=== PATIENT | female | born 1985 | race Caucasian/White ===

== ENCOUNTER 2016-05-13 11:00 | Inpatient (IN) | payer OTHER ==
[2016-05-13] MEDS ORDERED: ELECTROLYTE-148 SOLN 1,000 ML IV SCH (11:30)
[2016-05-13] MEDS: ELECTROLYTE-148 SOLN 1,000 ML IV SCH (11:30)
[2016-05-13] MEDS ORDERED: CITRIC ACID/SODIUM CITRATE 30 ML UNIT-DOSE CUP PO ONE (11:36)
[2016-05-13 12:32] LABS: URIC ACID 6.1 mg/dL (2.6-7.2)
[2016-05-13 12:59] VITALS: BMI 31.4
[2016-05-13] MEDS ORDERED: TUBERCULIN PPD 5 TU/0.1ML SYRINGE (IN PATIENT USE ONLY) ID ONE (13:00)
[2016-05-13 16:02] LABS: URINE APPEARANCE CLEAR; URINE BILIRUBIN NEGATIVE (NEGATIVE); URINE COLOR YELLOW; URINE GLUCOSE (UA) NEGATIVE (NEGATIVE); URINE KETONE NEGATIVE (NEGATIVE); URINE LEUK ESTERASE NEGATIVE (NEGATIVE); URINE NITRITE NEGATIVE (NEGATIVE); URINE PROTEIN NEGATIVE (NEGATIVE); URINE UROBILINOGEN NEGATIVE E.U./dl (0.2-1.0)
--- NOTE | 2016-05-13 16:06 | HP ---
[id number] Chief Complaint: 31 yo P0 @ 40.4 wks with induced hypertension and LGA fetus, protracted latent labor with no cervical change History of Present Illness: PNC uncomplicated, except for several URI History Source: Patient Limitations to Obtaining History: No Limitations - Past Medical History ...: 1 ...Para: 0 ...Term: 0 ...: 0 ...Spon : 0 ...Induced : 0 ...Multiple Gestation: 0 ...EDC by Sono: 05/11/16 - Past Surgical History Past Surgical History: Yes: None Hx Myomectomy: No Hx Transabdominal Cerclage: No - Smoking History Smoking history: Former smoker Have you smoked in the past 12 months: No - Alcohol/Substance Use Hx Alcohol Use: No History of Substance Use: reports: None - Social History Usual Living Arrangement: Yes: With Spouse ADL: Independent Occupation: branch rental manager History of Recent Travel: No Home Medications - Allergies Allergies/Adverse Reactions: Allergies Allergy/AdvReac Type Severity Reaction Status Date / Time Penicillins Allergy Verified 05/13/16 11:38 - Home Medications Home Medications: Ambulatory Orders Acetaminophen [Tylenol] 650 mg PO PRN PRN 04/23/16 Azithromycin [Zithromax 250mg Tablets -] 250 mg PO UTDICT #6 tab 04/23/16 Guaifenesin [Mucinex] 1 tab PO PRN 04/23/16 Caplet 1 tab PO DAILY 04/23/16 Ibuprofen [Motrin -] 600 mg PO QID #28 tablet 05/15/16 Oxycodone HCl/Acetaminophen [Percocet 5-325 mg Tablet] 1 - 2 tab PO Q6H #20 tab MDD 4 05/16/16 Review of Systems - Review of Systems Constitutional: reports: No Symptoms Eyes: reports: No Symptoms HENT: reports: No Symptoms Neck: reports: No Symptoms Cardiovascular: reports: No Symptoms Respiratory: reports: No Symptoms Gastrointestinal: reports: No Symptoms Genitourinary: reports: No Symptoms Breasts: reports: No Symptoms Reported Musculoskeletal: reports: No Symptoms Integumentary: reports: No Symptoms Neurological: reports: No Symptoms Endocrine: reports: No Symptoms Hematology/Lymphatic: reports: No Symptoms Psychiatric: reports: No Symptoms Pain Intensity: 5 Physical Exam - Maternity Vital Signs: Vital Signs Temperature 97.8 F 02/24/17 14:00 Pulse Rate 88 05/13/16 15:09 Respiratory Rate 18 05/13/16 15:09 Blood Pressure 123/64 05/13/16 15:09 O2 Sat by Pulse Oximetry (%) Constitutional: Yes: Well Nourished HENT: Yes: WNL Neck: Yes: WNL Cardiovascular: Yes: WNL Lungs: Clear to auscultation Breast(s): Yes: WNL - Abdominal Exam/OB Fundal Height: 40 Number of Fetuses: Single Presentation: Vertex Contractions: Yes Regularity: Regular Intensity: Mild/Mod Monitor Mode: External Heart Rate (range): 140's Accelerations: Uniform Decelerations: None - Vaginal Exam/OB Vaginal Bleediing: No Dilatation (cm): 1 Effacement (%): 70% Amniotic Membrane Status: Intact Presentation: Vertex/Position Station: -3 (not engaged) - Physical Exam Edema: No Deep Tendon Reflex Grade: Normal +2 ...Motor Strength: WNL Psychiatric: Yes: WNL Problem List - Problems (1) Hypertension affecting in third trimester Assessment/Plan: Transient HTN, UA - 6.1 will observe BP after delivery Code(s): O16.3 - UNSPECIFIED MATERNAL HYPERTENSION, THIRD TRIMESTER (2) Large for gestational age fetus affecting mother, antepartum, third trimester, single gestation Assessment/Plan: Likely CPD Vertex not engaged after 12hr of prodromal labor Will proceed with c/section Code(s): O36.63X0 - MATERNAL CARE FOR EXCESS GROWTH, THIRD TRIMESTER, UNSP Assessment/Plan 31yo P 0 @ 40.4 wks Admit to L&D PEC labs Anesthesia aware of plan to proceed with c/section Placenta posterior T&C x 2 Units
[2016-05-13 16:08] LABS: URINE BLOOD 2+ (NEGATIVE)
[2016-05-13 16:10] LABS: URINE MUCUS FEW; URINE RBC 4 /hpf (0-3); URINE WBC 7 /hpf (3-5)
[2016-05-13] MEDS ORDERED: morphine SULFATE/Preservative Free 0.5 MG/ML (1cc Syringe) IT ONE (17:03)
[2016-05-13] MEDS ORDERED: ONDANSETRON 4 MG/2 ML VIAL IVPB PRN (17:40)
[2016-05-13] MEDS ORDERED: IBUPROFEN 600 MG TABLET (FP) PO PRN (18:43)
[2016-05-13] MEDS ORDERED: ACETAMINOPHEN 325 MG TABLET (FP) PO PRN (18:43)
[2016-05-13] MEDS ORDERED: BENZOCAINE 20% 57 GM BOTTLE TP PRN (18:43)
[2016-05-13] MEDS ORDERED: BENZOCAINE 28 GM HEMORRHOIDAL OINTMENT TP PRN (18:43)
[2016-05-13] MEDS ORDERED: WITCH HAZEL 50% (TUCKS) 40 PAD/JAR PAD TP PRN (18:43)
[2016-05-13] MEDS ORDERED: METHYLERGONOVINE MALEATE 0.2 MG/1 ML AMP IM PRN (18:43)
[2016-05-13] MEDS ORDERED: BISACODYL 10 MG SUPP.RECT RC PRN (18:43)
--- NOTE | 2016-05-13 18:50 | PN ---
Delivery - Delivery Section: Primary, Low Flap Transverse Type of Anesthesia: Spinal Episiotomy/Laceration: None EBL (cc): 500 (Urine 175cc) Delivery, Single - Stages of Labor Date 1st Stage Initiatied: 05/13/16 Time 1st Stage Initiated: 07:00 Date of Delivery: 05/13/16 Time of Delivery: 17:29 Date Placenta Delivered: 05/13/16 Time Placenta Delivered: 17:30 Placenta: Yes: Expressed - Condition of Infant Tire Builder Operator/Senior Linux Unix Engineer Present: Yes Name: Dayana Obrien Infant Gender: Male Weight: 8 lb 4 oz Position: Right, OA Total Hours ROM (Hrs/Mins): 2 min - 1 Minute Total Score: 9 5 Minutes Total Score: 9 - Feeding Plan Initial Plan: Elected not to breastfeed exclusively throughout hospitalization Benefits of Exclusively reinforced: Yes Remarks - Remarks Remarks: Fluids 2000l Uterus closed in 2 layers with 0-Bycin Peretoneum closed with 0-Bycin Muscle reaproximated Fascia 0-Vycril SC reapproximated Skin 4-0
[2016-05-13] MEDS ORDERED: ACETAMINOPHEN 1000 MG/100 ML VIAL (NON FORMULARY) IVPB ONE (19:27)
[2016-05-13] MEDS: D5W-LR W/ 20 UNITS OXYTOCIN 1,000 ML IV SCH (19:43)
[2016-05-13] MEDS ORDERED: IBUPROFEN 800 MG/8 ML IJ IVPB ONE (19:46)
[2016-05-14] MEDS: D5W-LR W/ 20 UNITS OXYTOCIN 1,000 ML IV SCH (04:07)
[2016-05-14 07:25] LABS: BASOPHIL 0.3 % (0-2.0); EOSINOPHIL 0.6 % (0-4.5); MCH 31.1 pg (25.7-33.7); MCHC 33.9 g/dl (32.0-36.0); MEAN CELL VOLUME 91.7 fl (80-96); MEAN PLT VOLUME 8.9 fl (7.5-11.1); PLATELET COUNT 130 K/MM3 (134-434); RDW 13.5 % (11.6-15.6); WHITE BLOOD COUNT 10.6 K/mm3 (4.0-10.0)
--- NOTE | 2016-05-14 07:49 | PN ---
Post Progress Note - Subjective Subjective: 31 yo P1 now feels incisional pain in bed, attempting to breast feed Post Day: 1 Type of Delivery: Primary C/S Vital Signs: Vital Signs Temperature 98.6 F 05/14/16 06:00 Pulse Rate 76 05/14/16 06:00 Respiratory Rate 20 05/14/16 06:00 Blood Pressure 113/68 05/14/16 06:00 O2 Sat by Pulse Oximetry (%) 100 05/13/16 19:30 Breast Exam: Yes: Soft Uterus: Yes: Fundus Firm Incision: Yes: Dressing dry and intact Abdomen/GI: Yes: Abdomen soft Lochia: Yes: Rubra Lochia, amount: Small Extremities: Yes: Calves non-tender - Labs Labs: CBC WBC 10.6 K/mm3 (4.0-10.0) H D 05/14/16 06:00 RBC 3.53 M/mm3 (3.60-5.2) L 05/14/16 06:00 Hgb 11.0 GM/dL (10.7-15.3) D 05/14/16 06:00 Hct 32.4 % (32.4-45.2) 05/14/16 06:00 MCV 91.7 fl (80-96) 05/14/16 06:00 MCHC 33.9 g/dl (32.0-36.0) 05/14/16 06:00 RDW 13.5 % (11.6-15.6) 05/14/16 06:00 Plt Count 130 K/MM3 (134-434) L D 05/14/16 06:00 MPV 8.9 fl (7.5-11.1) 05/14/16 06:00 Neutrophils % 77.0 % (42.8-82.8) 05/14/16 06:00 Lymphocytes % 15.4 % (8-40) D 05/14/16 06:00 Monocytes % 6.7 % (3.8-10.2) 05/14/16 06:00 Eosinophils % 0.6 % (0-4.5) 05/14/16 06:00 Basophils % 0.3 % (0-2.0) 05/14/16 06:00 Retic Count 1.49 % (0.5-1.5) 05/13/16 11:45 Haptoglobin 93 mg/dL (34-200) 05/13/16 11:45 Assessment/Plan 31yo P1 s/p 1' c/s for LGA, induced HTN VSS, Afibrile repeat CBC Rh+ Baby for circ francesca PP care
--- NOTE | 2016-05-14 09:31 | PN ---
Progress Note (short form) - Note Progress Note: ANESTHESIA POST-OP CHECK 31F s/p under spinal anesthesia, POD #1. No acute complaints, tolerating PO, not yet OOB, vance in place. Denies N/V, headache. Pain 7/10 and tolerable. Vital Signs Temperature 98.6 F 05/14/16 06:00 Pulse Rate 76 05/14/16 06:00 Respiratory Rate 18 05/14/16 08:00 Blood Pressure 113/68 05/14/16 06:00 O2 Sat by Pulse Oximetry (%) 100 05/13/16 19:30 Active Medications Acetaminophen (Tylenol -) 650 mg PO Q4H PRN PRN Reason: FEVER OR PAIN Acetaminophen (Tylenol -) 650 mg PO Q3H PRN PRN Reason: PAIN Benzocaine (Americaine Ointment -) 1 applic TP PRN PRN PRN Reason: PAIN Benzocaine (Americaine 20% [place] -) 1 spray TP PRN PRN PRN Reason: PAIN Bisacodyl (Dulcolax Suppository -) 10 mg RC PRN PRN PRN Reason: CONSTIPATION Diphenhydramine HCl (Benadryl Injection -) 25 mg IVPUSH Q4H PRN PRN Reason: Pruritis Ferrous Sulfate (Feosol -) 325 mg PO BIDWM [facility] Parenteral Electrolytes (Plasma-Lyte 148 -) 1,000 mls @ 125 mls/hr IV ASDIR [facility] Last Admin: 05/13/16 11:30 Dose: 125 mls/hr Ibuprofen (Motrin -) 600 mg PO Q4H PRN PRN Reason: PAIN Ibuprofen (Motrin -) 600 mg PO Q4H PRN PRN Reason: PAIN Methylergonovine Maleate (Methergine Injection -) 0.2 mg IM Q4H PRN PRN Reason: EXCESSIVE BLEEDING (L&D) Multivit/Folic Acid/Iron ( Vitamins (Sjr) -) 1 tab PO DAILY [facility] Senna/Docusate Sodium (Pericolace -) 2 tablet PO HS PRN PRN Reason: CONSTIPATION Witch Arianna/Glycerin (Tucks Pads -) 1 pad TP PRN PRN PRN Reason: PAIN Gen: awake, alert Ext: No motor or sensory deficits of B/L lower ext. No apparent anesthesia complications. Pain well controlled. Continue management as per primary team.
[2016-05-14] MEDS: PRENATAL VITAMINS W/ FOLIC ACID TABLET (FP) PO SCH (10:46)
[2016-05-14] MEDS: FERROUS SO4 325 MG TABLET (FP) PO SCH ×2 (10:46→17:07)
[2016-05-14] MEDS: ELECTROLYTE-148 SOLN 1,000 ML IV SCH (13:00)
[2016-05-14] MEDS: IBUPROFEN 600 MG TABLET (FP) PO PRN ×3 (13:37→22:15)
[2016-05-14] MEDS: ACETAMINOPHEN 325 MG TABLET (FP) PO PRN ×3 (13:39→22:15)
--- NOTE | 2016-05-14 18:22 | OP ---
DATE OF OPERATION: 05/13/2016 SURGEON: Laura Gomes MD ASSET AVAILABILITY LEADER: Pasha Perez MD ANESTHESIOLOGIST: Blaine Acosta MD PREOPERATIVE DIAGNOSIS: A 31-year-old 1, para 0 at 40+ weeks with large for gestational age fetus and transient hypertension, protracted, prodromal labor. POSTOPERATIVE DIAGNOSIS: A 31-year-old 1, para 0 at 40+ weeks with large for gestational age fetus and transient hypertension, protracted, prodromal labor. PROCEDURE: Primary low segment transverse section. ANESTHESIA: Spinal. ESTIMATED BLOOD LOSS: 500 mL. URINE OUTPUT: 175 mL. FLUID REPLACED: 2,000 mL. DESCRIPTION OF PROCEDURE: After ensuring informed consent, the patient was brought to the operating room and placed in a supine position with left lateral tilt. Abdomen was prepped and draped in a sterile fashion. Pfannenstiel skin incision was made with a scalpel and carried down to the level of the fascia with the cautery. The fascia was incised with cautery and dissected bilaterally with good visualization of underlying muscle. It was subsequently dissected off the rectus abdominis muscle superiorly and inferiorly. The rectus abdominis was split in the midline. The peritoneum was identified and entered bluntly, dissected with good visualization of underlying organs with cautery. Bladder was retracted with [place] blade. Both gutters were packed with lap sponges. The vesicouterine peritoneum was identified and tented with pickups and incised with Metzenbaum scissors bilaterally. Bladder flap was created and retracted with the [place]. Uterine incision was made with a scalpel. Lightly tinged meconium fluid was noted. Uterine incision was extended bilaterally with bandage scissors. 's head was found to be floating and not engaged in the pelvis. It was delivered atraumatically. One cord around the neck was reduced. The 's shoulders and the rest of the body were delivered atraumatically. Cord was clamped and cut. Infant was handed to the pediatricians. Apgars were found to be 9 and 9. Infant male with weight of 8 pounds 4 ounces. Taken care of by pediatricians. Placenta was expressed. The uterus was cleared of clots and debris and repaired with 0 Biosyn in 2 layers. Peritoneum was closed with 0 Biosyn after all sponges and instruments were removed and excellent hemostasis was noted at the level of the uterus. Muscle was reapproximated in the midline. Fascia was closed with 0 Vicryl. Subcutaneous tissue reapproximated with 2-0 chromic and skin closed with 4-0 Biosyn. Excellent hemostasis was achieved. COUNTS: All lap sponges and instruments were counted and count was correct x2. The patient was brought to the recovery room in stable condition. Jc EWING/[id number] MTDD
[2016-05-14] MEDS: SENNOSIDES/DOCUSATE COMBO (SENNA PLUS) TABLET (UD) PO PRN (22:14)
[2016-05-15] MEDS: IBUPROFEN 600 MG TABLET (FP) PO PRN ×4 (03:42→20:44)
[2016-05-15] MEDS: ACETAMINOPHEN 325 MG TABLET (FP) PO PRN ×4 (03:44→20:44)
[2016-05-15] MEDS: PRENATAL VITAMINS W/ FOLIC ACID TABLET (FP) PO SCH (09:14)
[2016-05-15] MEDS: FERROUS SO4 325 MG TABLET (FP) PO SCH ×2 (09:14→17:19)
[2016-05-15 10:17] LABS: BASOPHIL 0.2 % (0-2.0); EOSINOPHIL 1.2 % (0-4.5); MCH 31.2 pg (25.7-33.7); MCHC 33.8 g/dl (32.0-36.0); MEAN CELL VOLUME 92.4 fl (80-96); MEAN PLT VOLUME 8.2 fl (7.5-11.1); NEUTROPHILS 75.8 % (42.8-82.8); PLATELET COUNT 144 K/MM3 (134-434); RDW 13.8 % (11.6-15.6); WHITE BLOOD COUNT 9.8 K/mm3 (4.0-10.0)
--- NOTE | 2016-05-15 12:05 | PN ---
Progress Note (short form) - Note Progress Note: pod 2 doing well, ambulating , passing gas CBC, BMP 05/15/16 09:30 Last Vital Signs Temp Pulse Resp BP Pulse Ox 98.1 F 85 18 141/78 100 05/15/16 09:12 05/15/16 09:12 05/15/16 09:12 05/15/16 09:12 05/13/16 19:30 abdomen soft, no distension, ,BS present incision dry, clean no calf tenderness plan cbc in am, ambulate
[2016-05-15] MEDS: SIMETHICONE 80 MG TAB.CHEW (FP) PO PRN ×2 (14:13→20:43)
[2016-05-15] MEDS: SENNOSIDES/DOCUSATE COMBO (SENNA PLUS) TABLET (UD) PO PRN (20:43)
[2016-05-16] MEDS: IBUPROFEN 600 MG TABLET (FP) PO PRN (01:09)
[2016-05-16] MEDS: SIMETHICONE 80 MG TAB.CHEW (FP) PO PRN ×2 (01:09→08:17)
[2016-05-16] MEDS: ACETAMINOPHEN 325 MG TABLET (FP) PO PRN ×3 (01:10→08:18)
[2016-05-16] MEDS: oxyCODONE HCL 5 MG TABLET PO PRN ×2 (04:24→08:18)
[2016-05-16] MEDS: FERROUS SO4 325 MG TABLET (FP) PO SCH (08:17)
[2016-05-16 08:34] VITALS: BP 123/88; PULSE 99; TEMP 98.4
--- NOTE | 2016-05-16 09:25 | PN ---
Post Progress Note - Subjective Subjective: 31yo P1 now s/p 1' LST c/s +BM, voiding, ambulating, tolerating reg diet Post Day: 3 Type of Delivery: Primary C/S Vital Signs: Vital Signs Temperature 98.4 F 05/16/16 08:32 Pulse Rate 99 H 05/16/16 08:32 Respiratory Rate 20 05/16/16 08:32 Blood Pressure 123/88 05/16/16 08:32 O2 Sat by Pulse Oximetry (%) 100 05/13/16 19:30 Breast Exam: Yes: Engorged Uterus: Yes: Fundus Firm, Non-tender Abdomen/GI: Yes: Abdomen soft, Passing flatus, Tolerating PO Lochia: Yes: Rubra Lochia, amount: Small Extremities: Yes: Calves non-tender Activity: Ambulating - Labs Labs: CBC WBC 9.8 K/mm3 (4.0-10.0) 05/15/16 09:30 RBC 3.14 M/mm3 (3.60-5.2) L 05/15/16 09:30 Hgb 9.8 GM/dL (10.7-15.3) L D 05/15/16 09:30 Hct 29.0 % (32.4-45.2) L 05/15/16 09:30 MCV 92.4 fl (80-96) 05/15/16 09:30 MCHC 33.8 g/dl (32.0-36.0) 05/15/16 09:30 RDW 13.8 % (11.6-15.6) 05/15/16 09:30 Plt Count 144 K/MM3 (134-434) 05/15/16 09:30 MPV 8.2 fl (7.5-11.1) 05/15/16 09:30 Neutrophils % 75.8 % (42.8-82.8) 05/15/16 09:30 Lymphocytes % 17.1 % (8-40) 05/15/16 09:30 Monocytes % 5.7 % (3.8-10.2) 05/15/16 09:30 Eosinophils % 1.2 % (0-4.5) D 05/15/16 09:30 Basophils % 0.2 % (0-2.0) 05/15/16 09:30 Retic Count 1.49 % (0.5-1.5) 05/13/16 11:45 Haptoglobin 93 mg/dL (34-200) 05/13/16 11:45 Assessment/Plan 31yo P1 s/p 1' c/s for LGA, induced HTN VSS, Afibrile Rh+ Baby circumcised D/c home today NPV for 6 weeks RTO 1 and 6 weeks
--- NOTE | 2016-05-16 09:30 | DS ---
Physical Exam-FOLDER HAND Vital Signs: Vital Signs Temperature 98.4 F 05/16/16 08:32 Pulse Rate 99 H 05/16/16 08:32 Respiratory Rate 20 05/16/16 08:32 Blood Pressure 123/88 05/16/16 08:32 O2 Sat by Pulse Oximetry (%) 100 05/13/16 19:30 Constitutional: Yes: Well Nourished HENT: Yes: WNL Neck: Yes: WNL Cardiovascular: Yes: WNL Respiratory: Yes: WNL, CTA Bilaterally Gastrointestinal: Yes: WNL, Normal Bowel Sounds Pelvis: Yes: WNL External Genitalia: Yes: Normal Vaginal Exam: Yes: Normal ....Post : Yes: Uterus firm, Uterus non-tender Breast(s): Yes: WNL Musculoskeletal: Yes: WNL Extremities: Yes: WNL Edema: No Wound/Incision: Yes: Clean/Dry Neurological: Yes: WNL ...Motor Strength: WNL Psychiatric: Yes: WNL Labs: CBC, BMP 05/15/16 09:30 Delivery - Delivery Section: Primary, Low Flap Transverse Type of Anesthesia: Spinal Episiotomy/Laceration: None EBL (cc): 500 (Urine 175cc) Delivery, Single - Stages of Labor Date 1st Stage Initiatied: 05/13/16 Time 1st Stage Initiated: 07:00 Date of Delivery: 05/13/16 Time of Delivery: 17:29 Time Placenta Delivered: 17:30 Placenta: Yes: Expressed - Condition of Deputy Probation Officer/Wheat Inspector Present: Yes Name: Dayana Obrien Infant Gender: Male Weight: 8 lb 4 oz Position: Right, OA Total Hours ROM (Hrs/Mins): 2 min - 1 Minute Total Score: 9 5 Minutes Total Score: 9 - [place] Feeding Plan Initial Plan: Elected not to breastfeed exclusively throughout hospitalization Benefits of Exclusively reinforced: Yes Remarks - Remarks Remarks: Fluids 2000l Uterus closed in 2 layers with 0-Bycin Peretoneum closed with 0-Bycin Muscle reaproximated Fascia 0-Vycril SC reapproximated Skin 4-0 Discharge Summary Reason For Visit: C/SECTION Condition: Good - Instructions Diet, Activity, Other Instructions: Physical activity Resume your normal everyday activity as tolerated no heavy lifting or exercise until seen by your surgeon. You may walk unlimited bhavna of and climb stairs. You may resume driving the car when you feel safe and comfortable behind the wheel. No sexual activity as instructed. Wound care If you have a bandage, leave it on, and keep dry for 48-72 hours. After that time discard the outer bandage. If they are tapes on the skin under the out of bandage leave them in place. They will peel off in the next 7 to 10 days. Do Not Peel them off. You may shower the day after surgery. If there are tapes present on the skin, you may shower over them. Diet There are no dietary restrictions. Eat healthy, high-fiber foods. Drink 6 to 8 glasses of liquid each day. This will assist in keeping your bowels are regular. Pain management You may take Tylenol or acetaminophen or Ibuprofen (for example, Motrin, Advil etc.) from my pain prescription medication is ordered should be taken as prescribed for moderate to severe pain. Call MD for any of the following: Severe pain not relieved by medication Fever of 101 or higher Excessive bleeding or drainage on dressing Inability to urinate regular diet, Please take Vitamin C, follow up office 1 week Referrals: Laura Gomes MD [Staff Physician] - Pasha Perez MD [Staff Physician] - - Home Medications Comprehensive Discharge Medication List: Ambulatory Orders Acetaminophen [Tylenol] 650 mg PO PRN PRN 04/23/16 Azithromycin [Zithromax 250mg Tablets -] 250 mg PO UTDICT #6 tab 04/23/16 Guaifenesin [Mucinex] 1 tab PO PRN 04/23/16 Caplet 1 tab PO DAILY 04/23/16 Ibuprofen [Motrin -] 600 mg PO QID #28 tablet 05/15/16 Oxycodone HCl/Acetaminophen [Percocet 5-325 mg Tablet] 1 - 2 tab PO Q6H #20 tab MDD 4 05/16/16
[2016-05-16] MEDS: PRENATAL VITAMINS W/ FOLIC ACID TABLET (FP) PO SCH (10:00)
--- NOTE | 2016-05-19 14:01 | PATH ---
Surgical Pathology Report Patient Name: TAPAN GOMEZ [facility]. Rec. #: [id number] /Age/Gender: 1985 (Age: 31) / F Account: [id number] Location: [facility] OBS/FIELD MARKETING LEAD Taken: 05/13/2016 Received: 05/16/2016 Reported: 05/19/2016 Physicians: Laura Gomes M.D. Specimen(s) Received PLACENTA Clinical History Primary large for gestational age Transient hypertension Final Diagnosis PLACENTA, DELIVERY: FOCALLY DISRUPTED THIRD TRIMESTER PLACENTA WITH THREE VESSEL UMBILICAL CORD AND UNREMARKABLE PLACENTAL MEMBRANES. Electronically Signed Naren Villegas M.D. Gross Description The specimen is received fresh labeled placenta and is a 481 gram, 20.0 x 18.0 x 2.4 cm. placenta with attached membranes and umbilical cord. The attached membranes are nicole, translucent with focal opacities and insert marginally. The umbilical cord measures 32 cm. in length and averages 1.2 cm. in diameter. The cord inserts eccentrically, 6 cm. to the nearest margin. No true knots or strictures are identified. Cut surface of the umbilical cord reveals 3 vessels. The surface is sanchez-blue with minimal fibrin deposition and appropriate caliber vessels. The maternal surface is red-brown with focal defects. Sectioning reveals red-brown, spongy parenchyma. No lesions are identified. Rubber Goods Inspector Tester sections are submitted in three cassettes as follows: 1- membrane rolls and umbilical cord; 2-3- full thickness sections of placenta. 05/18/2016 [facility]05/18/2016
== END 2016-05-16 10:30 | disposition home or self-care (01) | DRG 371 ==
LOC: JLDR 11:00 → J3W 20:31
PROVIDERS: ADMIT Obstetrics & Gynecology; ATTEND Obstetrics & Gynecology
PROC: 10D00Z1 Extraction of Products of Conception, Low, Open Approach (ICD-10-PCS; principal; 2016-05-13)
DX: O48.0 Post-term pregnancy (principal); O36.63X0 Maternal care for excessive fetal growth, third trimester, not applicable or unspecified; O13.4 Gestational [pregnancy-induced] hypertension without significant proteinuria, complicating childbirth; Z3A.40 40 weeks gestation of pregnancy; Z37.0 Single live birth
CPT/HCPCS: 36415; 81003; 81015; 82977; 83010; 84450; 84460; 84550; 85025; 85044; 88307-TC

== ENCOUNTER 2017-11-10 06:25 | Inpatient (IN) | payer OTHER ==
[2017-11-10] MEDS ORDERED: CITRIC ACID/SODIUM CITRATE 30 ML UNIT-DOSE CUP PO ONE (06:45)
[2017-11-10] MEDS ORDERED: ELECTROLYTE-148 SOLN 500 ML IV ONE (06:45)
[2017-11-10] MEDS ORDERED: ELECTROLYTE-148 SOLN 500 ML IV SCH (07:15)
[2017-11-10 07:41] VITALS: BMI 31.7
--- NOTE | 2017-11-10 07:50 | HP ---
Past Medical History - Primary Care Physician PCP:: Laura Gomes - Admission Chief Complaint: 32yo P1 with mild preeclampsia, by elevated BP 140/90 and over 300mg/day proteinuria, + FM, no ctx, no VB History of Present Illness: 1. Prior c/section x 1 with induced HTN, CPD 2. Had Materni 21 - normal XX History Source: Patient Limitations to Obtaining History: No Limitations - Past Medical History ...: 2 ...Para: 1 ...Term: 1 ...: 0 ...Spon : 0 ...Induced : 0 ...Multiple Gestation: 0 ...LMP: 02/07/17 ... Weeks Gestation by Dates: 39.3 ...EDC by Dates: 11/14/17 ...EDC by Sono: 11/23/17 - Past Surgical History Past Surgical History: Yes: None, Hx Myomectomy: No Hx Transabdominal Cerclage: No - Smoking History Smoking history: Former smoker Have you smoked in the past 12 months: No - Alcohol/Substance Use Hx Alcohol Use: No History of Substance Use: reports: None - Social History ADL: Independent Occupation: manager intermediate History of Recent Travel: No Home Medications - Allergies Allergies/Adverse Reactions: Allergies Allergy/AdvReac Type Severity Reaction Status Date / Time Penicillins Allergy Verified 11/03/17 10:53 - Home Medications Home Medications: Ambulatory Orders Vit 108/Iron/Folic AC [ One Tablet] 1 each PO DAILY 11/03/17 Review of Systems - Review of Systems Constitutional: reports: No Symptoms Eyes: reports: No Symptoms HENT: reports: No Symptoms Neck: reports: No Symptoms Cardiovascular: reports: No Symptoms Respiratory: reports: No Symptoms Gastrointestinal: reports: No Symptoms Genitourinary: reports: No Symptoms Breasts: reports: No Symptoms Reported Musculoskeletal: reports: No Symptoms Integumentary: reports: No Symptoms Neurological: reports: No Symptoms Endocrine: reports: No Symptoms Hematology/Lymphatic: reports: No Symptoms Psychiatric: reports: No Symptoms Physical Exam - Maternity Vital Signs: Vital Signs Temperature 98.6 F 11/10/17 07:00 Pulse Rate 107 H 11/10/17 07:00 Respiratory Rate 18 11/10/17 07:00 Blood Pressure 129/79 11/10/17 07:00 O2 Sat by Pulse Oximetry (%) Constitutional: Yes: Well Nourished, No Distress, Calm Eyes: Yes: WNL, Conjunctiva Clear, EOM Intact HENT: Yes: WNL, Atraumatic, Normocephalic Neck: Yes: WNL, Supple, Trachea Midline Cardiovascular: Yes: WNL, Regular Rate and Rhythm Lungs: Clear to auscultation Breast(s): Yes: WNL - Abdominal Exam/OB Fundal Height: 39 Number of Fetuses: Single Presentation: Vertex Contractions: No Monitor Mode: External Heart Rate (range): 140 Heart Rate Location: Midline Category: I Accelerations: Uniform Decelerations: None - Vaginal Exam/OB Vaginal Bleediing: No Presentation: Vertex/Position - Physical Exam Musculoskeletal: Yes: WNL Extremities: Yes: WNL Integumentary: Yes: WNL ...Motor Strength: WNL Psychiatric: Yes: WNL, Alert, Oriented Assessment/Plan 32yo P1 @ 39.3wks with h/o prior c/section now with mild preeclampsia, BPs 140/90 in the office and 24hr UA ~390mg/24hr increased upper and lower extremity edema Admit to L&D for desired Repeat c/section IVF, NPO, Anesthesia aware Fetus Category 1 FHR R/B/A discussed Consent signed
[2017-11-10] MEDS ORDERED: OXYTOCIN 20 UNITS in 0.9% NS 40 UNIT/2,000 ML INFUS.BAG IV ONE (07:54)
[2017-11-10] MEDS ORDERED: morphine SULFATE/Preservative Free 0.5 MG/ML (1cc Syringe) ONE (07:57)
[2017-11-10] MEDS ORDERED: CLINDAMYCIN PHOSPHATE 600 MG/4 ML VIAL ONE (07:57)
[2017-11-10] MEDS ORDERED: PHENYLEPHRINE HCL 10 MG/1 ML SINGLE DOSE VIAL ONE (07:58)
[2017-11-10] MEDS ORDERED: ELECTROLYTE-148 SOLN 1,000 ML IV SCH (08:00)
[2017-11-10] MEDS ORDERED: BENZOCAINE 20% 57 GM BOTTLE TP PRN (08:02)
[2017-11-10] MEDS ORDERED: BENZOCAINE 28 GM HEMORRHOIDAL OINTMENT PR PRN (08:02)
[2017-11-10] MEDS ORDERED: IBUPROFEN 800 MG/8 ML IJ IVPB PRN (08:02)
[2017-11-10] MEDS ORDERED: METHYLERGONOVINE MALEATE 0.2 MG/1 ML AMP IM PRN (08:02)
[2017-11-10] MEDS ORDERED: diphenhydrAMINE HCL 25 MG CAPSULE (FP) PO PRN (08:02)
[2017-11-10] MEDS ORDERED: oxyCODONE HCL 5 MG TABLET PO PRN (08:02)
[2017-11-10] MEDS ORDERED: WITCH HAZEL 50% (TUCKS) 40 PAD/JAR PAD TP PRN (08:02)
[2017-11-10] MEDS ORDERED: OXYTOCIN 20 UNITS in 0.9% NS 20 UNIT/1,000 ML INFUS.BAG IV SCH (08:15)
[2017-11-10] MEDS ORDERED: DEXAMETHASONE SOD PHOSPHATE 4 MG/1 ML VIAL ONE (08:23)
[2017-11-10] MEDS ORDERED: ceFAZolin SODIUM 1 GM VIAL ONE ×2 (08:23→16:16)
[2017-11-10] MEDS ORDERED: ONDANSETRON 4 MG/2 ML VIAL IVPUSH PRN (08:50)
[2017-11-10] MEDS ORDERED: ACETAMINOPHEN 1000 MG/100 ML VIAL (NON FORMULARY) IVPB PRN (08:52)
[2017-11-10] MEDS ORDERED: TUBERCULIN PPD 5 TU/0.1ML SYRINGE (IN PATIENT USE ONLY) ID ONE (09:00)
[2017-11-10] MEDS ORDERED: CEFAZOLIN 1 GM in DEXTROSE 5%-WATER - 50 ML IVPB SCH (10:00)
[2017-11-10] MEDS: IBUPROFEN 800 MG/8 ML IJ IVPB PRN (15:09)
[2017-11-10] MEDS ORDERED: DEXTROSE 5%-WATER - 50 ML IVPB ONE (16:16)
[2017-11-10] MEDS: CEFAZOLIN 1 GM in DEXTROSE 5%-WATER - 50 ML IVPB SCH (16:25)
--- NOTE | 2017-11-10 21:02 | OP ---
Operative Note - Note: Operative Date: 11/10/17 Pre-Operative Diagnosis: 32yo P1 @ 39.3wks with mild Preeclampsia, prior c/ section, multiparity Operation: Repeat LST c/section, Bilateral salpingectomy Findings: Viable female, 7.3lb, APGARs 9/9 Nl Bl tubes and ovaries Post-Operative Diagnosis: Same as Pre-op Surgeon: Laura Gomes Comfort Advisor: Mercedes Larson Anesthesiologist/SHELL CORE AND MOLDING SUPERVISOR: Laura Fan Anesthesia: Spinal Specimens Removed: 1. Female infant 7lb, APGARS 9/9. 2. Portions of bilateral tubes Estimated Blood Loss (mls): 600 Drains, Volume Out (mls): 200 Fluid Volume Replaced (mls): 2,300 Operative Report Dictated: Yes
--- NOTE | 2017-11-10 21:03 | PN ---
Delivery - Delivery Section: Repeat, Low Flap Transverse Type of Anesthesia: Spinal Episiotomy/Laceration: None EBL (cc): 600 Delivery, Single - Stages of Labor Date of Delivery: 11/10/17 Time of Delivery: 08:43 Time Placenta Delivered: 08:44 - Condition of Infant Spray Gun Striper/Environmental Engineering Technician Present: Yes Name: Dayana bOrien Gender: Female Weight: 7 lb 3 oz Position: Right, OT Total Hours ROM (Hrs/Mins): 0/2 - 1 Minute Total Score: 9 5 Minutes Total Score: 9 - [place] Feeding Plan Initial Plan: Exclusive throughout hospitalization
[2017-11-11] MEDS ORDERED: DEXTROSE 5%-WATER - 50 ML IVPB ONE (00:11)
[2017-11-11] MEDS ORDERED: ceFAZolin SODIUM 1 GM VIAL ONE (00:11)
[2017-11-11] MEDS: CEFAZOLIN 1 GM in DEXTROSE 5%-WATER - 50 ML IVPB SCH (00:39)
[2017-11-11] MEDS: IBUPROFEN 800 MG/8 ML IJ IVPB PRN ×2 (01:24→08:09)
[2017-11-11] MEDS: ENOXAPARIN NA (PORCINE) 30 MG/0.3 ML DISP.SYRIN SQ SCH ×2 (01:24→10:52)
[2017-11-11] MEDS ORDERED: BISACODYL 10 MG SUPP.RECT PR PRN (08:02)
[2017-11-11 08:47] LABS: BASO % 0.3 % (0-2.0); EOS % 0.8 % (0-4.5); HEMATOCRIT 31.7 % (32.4-45.2); HEMOGLOBIN 10.6 GM/dL (10.7-15.3); LYMPH % 19.3 % (8-40); MCH 30.2 pg (25.7-33.7); MCHC 33.5 g/dl (32.0-36.0); MEAN CELL VOLUME 90.1 fl (80-96); MEAN PLT VOLUME 8.3 fl (7.5-11.1); MONO % 5.8 % (3.8-10.2); NEUT % 73.8 % (42.8-82.8); PLATELET COUNT 139 K/MM3 (134-434); RBC 3.52 M/mm3 (3.60-5.2); RDW 13.2 % (11.6-15.6); WHITE BLOOD COUNT 9.9 K/mm3 (4.0-10.0)
--- NOTE | 2017-11-11 10:36 | PN ---
Post Progress Note - Subjective Subjective: No complains Post Day: 1 Type of Delivery: Repeat C/S Vital Signs: Vital Signs Temperature 98.1 F 11/11/17 06:00 Pulse Rate 85 11/11/17 06:00 Respiratory Rate 20 11/11/17 09:00 Blood Pressure 114/65 11/11/17 06:00 O2 Sat by Pulse Oximetry (%) 100 11/10/17 10:55 Breast Exam: Yes: Soft Uterus: Yes: Fundus Firm Incision: Yes: Dressing dry and intact Abdomen/GI: Yes: Abdomen soft Lochia: Yes: Rubra Lochia, amount: Small Extremities: Yes: Calves non-tender Perineum: Yes: Intact Activity: Ambulating (voided) - Labs Labs: CBC WBC 9.9 K/mm3 (4.0-10.0) 11/11/17 08:30 RBC 3.52 M/mm3 (3.60-5.2) L 11/11/17 08:30 Hgb 10.6 GM/dL (10.7-15.3) L 11/11/17 08:30 Hct 31.7 % (32.4-45.2) L 11/11/17 08:30 MCV 90.1 fl (80-96) 11/11/17 08:30 MCH 30.2 pg (25.7-33.7) 11/11/17 08:30 MCHC 33.5 g/dl (32.0-36.0) 11/11/17 08:30 RDW 13.2 % (11.6-15.6) 11/11/17 08:30 Plt Count 139 K/MM3 (134-434) D 11/11/17 08:30 MPV 8.3 fl (7.5-11.1) 11/11/17 08:30 Absolute Neuts (auto) 7.3 K/mm3 (1.5-8.0) 11/11/17 08:30 Neutrophils % 73.8 % (42.8-82.8) 11/11/17 08:30 Lymphocytes % 19.3 % (8-40) 11/11/17 08:30 Monocytes % 5.8 % (3.8-10.2) 11/11/17 08:30 Eosinophils % 0.8 % (0-4.5) 11/11/17 08:30 Basophils % 0.3 % (0-2.0) 11/11/17 08:30 Nucleated RBC % 0 % (0-0) 11/11/17 08:30 Assessment/Plan 32yo P2 s/p Repeat c/section VSS, Afebrile Doing well Voiding BPs wnl Encourage ambulation Routine Postop care
--- NOTE | 2017-11-11 12:25 | PN ---
Progress Note, Physician Chief Complaint: day #1 s/p spinal with duramorph for csection - Current Medication List Current Medications: Active Medications Acetaminophen (Ofirmev Injection -) 1,000 mg IVPB Q6H PRN PRN Reason: FEVER Benzocaine (Americaine 20% [place] -) 1 spray TP PRN PRN PRN Reason: Pain - Topical Benzocaine (Americaine Ointment -) 1 applic [place] PRN PRN PRN Reason: Pain - Topical Bisacodyl (Dulcolax Suppository -) 10 mg [place] PRN PRN PRN Reason: CONSTIPATION Diphenhydramine HCl (Benadryl -) 25 mg PO Q8H PRN PRN Reason: FOR ITCHING Diphenhydramine HCl (Benadryl Injection -) 25 mg IVPUSH Q4H PRN PRN Reason: Pruritis Enoxaparin Sodium (Lovenox -) 40 mg SQ DAILY MELODIE Dextrose/Lactated Ringer's (D5-Lr -) 1,000 mls @ 125 mls/hr IV ASDIR MELODIE Ibuprofen (Motrin -) 600 mg PO Q4H PRN PRN Reason: PAIN LEVEL 1 - 3 Methylergonovine Maleate (Methergine Injection -) 0.2 mg IM Q4H PRN PRN Reason: EXCESSIVE BLEEDING Ondansetron HCl (Zofran Injection) 4 mg IVPUSH Q4H PRN PRN Reason: NAUSEA Oxycodone HCl (Roxicodone -) 5 mg PO Q4H PRN PRN Reason: PAIN LEVEL 4 - 6 Stop: 11/13/17 17:00 Oxycodone HCl (Roxicodone -) 10 mg PO Q4H PRN PRN Reason: PAIN LEVEL 7 - 10 Senna/Docusate Sodium (Pericolace -) 2 tablet PO HS PRN PRN Reason: CONSTIPATION Simethicone (Mylicon -) 80 mg PO Q4H PRN PRN Reason: GAS Witch Arianna/Glycerin (Tucks Pads -) 1 pad TP PRN PRN PRN Reason: Pain - Topical - Objective Vital Signs: Vital Signs Temperature 98.5 F 11/11/17 09:00 Pulse Rate 83 11/11/17 09:00 Respiratory Rate 20 11/11/17 09:00 Blood Pressure 112/77 11/11/17 09:00 O2 Sat by Pulse Oximetry (%) 100 11/10/17 10:55 Labs: CBC, BMP 11/11/17 08:30 Assessment/Plan had c/o itching yesterday that improved with benadryl; today, itching much improved. Pain minimal, able to ambulate. No REGALADO/back pain, no other anesthetic issues/complications.
[2017-11-11] MEDS: oxyCODONE HCL 5 MG TABLET PO PRN ×3 (14:57→23:15)
[2017-11-11] MEDS: IBUPROFEN 600 MG TABLET (FP) PO PRN ×3 (14:59→23:15)
[2017-11-11] MEDS: SIMETHICONE 80 MG TAB.CHEW (FP) PO PRN ×3 (14:59→23:15)
[2017-11-11] MEDS: SENNOSIDES/DOCUSATE COMBO (SENNA PLUS) TABLET (UD) PO PRN (19:44)
[2017-11-11] MEDS: DEXTROSE 5%-LACTATED RINGERS 1,000 ML IV SCH (23:08)
[2017-11-12] MEDS: SIMETHICONE 80 MG TAB.CHEW (FP) PO PRN ×4 (06:18→20:13)
[2017-11-12] MEDS: oxyCODONE HCL 5 MG TABLET PO PRN ×4 (06:18→20:13)
[2017-11-12] MEDS: IBUPROFEN 600 MG TABLET (FP) PO PRN ×4 (06:19→20:13)
[2017-11-12] MEDS: ENOXAPARIN NA (PORCINE) 40 MG/0.4 ML DISP.SYRIN SQ SCH (10:19)
--- NOTE | 2017-11-12 10:41 | PN ---
Post Progress Note - Subjective Subjective: No complains, , voiding, ambulating, + flatus Post Day: 2 Type of Delivery: Repeat C/S Vital Signs: Vital Signs Temperature 98.7 F 11/12/17 09:00 Pulse Rate 89 11/12/17 09:00 Respiratory Rate 20 11/12/17 09:00 Blood Pressure 123/63 11/12/17 09:00 O2 Sat by Pulse Oximetry (%) 100 11/10/17 10:55 Breast Exam: Yes: Soft Uterus: Yes: Fundus Firm Incision: Yes: Sutures intact Abdomen/GI: Yes: Abdomen soft Lochia: Yes: Rubra Lochia, amount: Small Extremities: Yes: Calves non-tender Perineum: Yes: Intact Activity: Ambulating - Labs Labs: CBC WBC 9.9 K/mm3 (4.0-10.0) 11/11/17 08:30 RBC 3.52 M/mm3 (3.60-5.2) L 11/11/17 08:30 Hgb 10.6 GM/dL (10.7-15.3) L 11/11/17 08:30 Hct 31.7 % (32.4-45.2) L 11/11/17 08:30 MCV 90.1 fl (80-96) 11/11/17 08:30 MCH 30.2 pg (25.7-33.7) 11/11/17 08:30 MCHC 33.5 g/dl (32.0-36.0) 11/11/17 08:30 RDW 13.2 % (11.6-15.6) 11/11/17 08:30 Plt Count 139 K/MM3 (134-434) D 11/11/17 08:30 MPV 8.3 fl (7.5-11.1) 11/11/17 08:30 Absolute Neuts (auto) 7.3 K/mm3 (1.5-8.0) 11/11/17 08:30 Neutrophils % 73.8 % (42.8-82.8) 11/11/17 08:30 Lymphocytes % 19.3 % (8-40) 11/11/17 08:30 Monocytes % 5.8 % (3.8-10.2) 11/11/17 08:30 Eosinophils % 0.8 % (0-4.5) 11/11/17 08:30 Basophils % 0.3 % (0-2.0) 11/11/17 08:30 Nucleated RBC % 0 % (0-0) 11/11/17 08:30 Assessment/Plan 32yo P2 s/p Repeat c/section and BTL VSS, Afebrile Doing well Voiding BPs wnl Encourage ambulation Routine Postop care Plan to D/c in am NPV x 6wks
[2017-11-12] MEDS: SENNOSIDES/DOCUSATE COMBO (SENNA PLUS) TABLET (UD) PO PRN (20:12)
[2017-11-13] MEDS: IBUPROFEN 600 MG TABLET (FP) PO PRN ×3 (00:04→07:54)
[2017-11-13] MEDS: oxyCODONE HCL 5 MG TABLET PO PRN ×3 (00:04→07:54)
[2017-11-13] MEDS: SIMETHICONE 80 MG TAB.CHEW (FP) PO PRN ×3 (00:05→07:55)
[2017-11-13 02:34] VITALS: PULSE 75
[2017-11-13 08:00] LABS: BASO % 0.4 % (0-2.0); HEMATOCRIT 32.6 % (32.4-45.2); HEMOGLOBIN 11.1 GM/dL (10.7-15.3); LYMPH % 37.1 % (8-40); MCH 30.6 pg (25.7-33.7); MEAN CELL VOLUME 90.1 fl (80-96); MEAN PLT VOLUME 7.6 fl (7.5-11.1); MONO % 7.4 % (3.8-10.2); NEUT % 52.1 % (42.8-82.8); PLATELET COUNT 198 K/MM3 (134-434); RBC 3.62 M/mm3 (3.60-5.2); RDW 13.2 % (11.6-15.6); WHITE BLOOD COUNT 6.8 K/mm3 (4.0-10.0)
[2017-11-13] MEDS: ENOXAPARIN NA (PORCINE) 40 MG/0.4 ML DISP.SYRIN SQ SCH (09:41)
--- NOTE | 2017-11-13 11:05 | DS ---
Physical Exam-HOSE SEAMER Vital Signs: Vital Signs Temperature 98.5 F 11/12/17 22:00 Pulse Rate 75 11/12/17 22:00 Respiratory Rate 18 11/12/17 22:00 Blood Pressure 129/57 11/12/17 22:00 O2 Sat by Pulse Oximetry (%) 100 11/10/17 10:55 Constitutional: Yes: Well Nourished, No Distress, Calm Eyes: Yes: WNL, Conjunctiva Clear, EOM Intact HENT: Yes: WNL, Atraumatic, Normocephalic Neck: Yes: WNL, Supple, Trachea Midline Cardiovascular: Yes: WNL, Regular Rate and Rhythm Respiratory: Yes: WNL, Regular, CTA Bilaterally Gastrointestinal: Yes: WNL, Normal Bowel Sounds, Soft Renal/: Yes: WNL, Urethral Discharge Pelvis: Yes: WNL External Genitalia: Yes: Normal Vaginal Exam: Yes: Normal ....Post : Yes: Uterus firm, Uterus non-tender Breast(s): Yes: WNL Musculoskeletal: Yes: WNL Extremities: Yes: WNL Integumentary: Yes: WNL Wound/Incision: Yes: Clean/Dry, Well Approximated, Sutures Intact Neurological: Yes: WNL, Alert, Oriented ...Motor Strength: WNL Psychiatric: Yes: WNL, Alert, Oriented Labs: CBC, BMP 11/13/17 06:00 Delivery - Delivery Section: Repeat, Low Flap Transverse Type of Anesthesia: Spinal Episiotomy/Laceration: None EBL (cc): 600 Delivery, Single - Stages of Labor Date of Delivery: 11/10/17 Time of Delivery: 08:43 Date Placenta Delivered: 11/10/17 Time Placenta Delivered: 08:44 Placenta: Yes: Expressed - Condition of Infant Manager Deli/Preparation Department Supervisor Present: Yes Name: Dayana Obrien Gender: Female Weight: 7 lb 3 oz Position: Right, OT Total Hours ROM (Hrs/Mins): 0/2 - 1 Minute Total Score: 9 5 Minutes Total Score: 9 - Feeding Plan Initial Plan: Exclusive throughout hospitalization Discharge Summary Reason For Visit: ADMIT REPEAT C/SECTION Condition: Good - Instructions Diet, Activity, Other Instructions: Physical activity Resume your normal everyday activity as tolerated no heavy lifting or exercise until seen by your surgeon. You may walk unlimited bhavna of and climb stairs. You may resume driving the car when you feel safe and comfortable behind the wheel. No sexual activity as instructed. Wound care If you have a bandage, leave it on, and keep dry for 48-72 hours. After that time discard the outer bandage. If they are tapes on the skin under the out of bandage leave them in place. They will peel off in the next 7 to 10 days. Do Not Peel them off. You may shower the day after surgery. If there are tapes present on the skin, you may shower over them. Diet There are no dietary restrictions. Eat healthy, high-fiber foods. Drink 6 to 8 glasses of liquid each day. This will assist in keeping your bowels are regular. Pain management You may take Tylenol or acetaminophen or Ibuprofen (for example, Motrin, Advil etc.) from my pain prescription medication is ordered should be taken as prescribed for moderate to severe pain. Call MD for any of the following: Severe pain not relieved by medication Fever of 101 or higher Excessive bleeding or drainage on dressing Inability to urinate Referrals: Laura Gomes MD [Staff Physician] - Disposition: HOME - Home Medications Comprehensive Discharge Medication List: Ambulatory Orders Vit 108/Iron/Folic AC [ One Tablet] 1 each PO DAILY 11/03/17
[2017-11-13 12:48] VITALS: BP 99/63; TEMP 98.1
--- NOTE | 2017-11-21 16:20 | PATH ---
Surgical Pathology Report Patient Name: TAPAN SCHMIDT [facility]. Rec. #: [id number] /Age/Gender: 1985 (Age: 32) / F Account: [id number] Location: [facility] OBS/PATENT PROSECUTION PARALEGAL Taken: 11/10/2017 Received: 11/13/2017 Reported: 11/21/2017 Physicians: Laura Gomes M.D. Specimen(s) Received A: PLACENTA B: PORTION LEFT FALLOPIAN TUBE C: PORTION RIGHT FALLOPIAN TUBE Clinical History for repeat and BTL, 38.1 weeks Gestational hypertension/mild preeclampsia Final Diagnosis A. PLACENTA: THIRD TRIMESTER PLACENTA WITH FOCAL INFARCTION (1CM IN GREATEST DIMENSION). TRIVASCULAR CORD. MEMBRANES WITH NO DIAGNOSTIC ABNORMALITIES. B. LEFT PORTION OF FALLOPIAN TUBE: COMPLETE CROSS SECTION OF THE FALLOPIAN TUBE IDENTIFIED. C. RIGHT PORTION OF FALLOPIAN TUBE: COMPLETE CROSS SECTION OF THE FALLOPIAN TUBE IDENTIFIED. Electronically Signed Roberto Rivera M.D. Gross Description A. The specimen is received fresh labeled placenta and is a 467 gram, 19.0 x 15.0 x 2.4 cm. placenta with attached membranes and umbilical cord. The attached membranes are nicole, translucent with focal opacities and insert marginally. The umbilical cord measures 34 cm. in length and averages 1.1 cm. in diameter. The cord inserts eccentrically, 4 cm. to the nearest margin. No true knots or strictures are identified. Cut surface of the umbilical cord reveals 3 vessels. The surface is sanchez-blue with minimal fibrin deposition and appropriate caliber vessels. The maternal surface is red-brown with focal defects. Sectioning reveals red-brown, spongy parenchyma. No lesions are identified. Shoe Coverer sections are submitted in three cassettes as follows: 1- membrane rolls and umbilical cord; 2-3- full thickness sections of placenta. B. Received in formalin labeled "portion of left fallopian tube," is a 2.8 cm in length fimbriated fallopian tube. The outer surface is nicole-ques[place] and smooth. Sectioning reveals an unremarkable lumen. Shoe Coverer sections are submitted in 2 cassettes as follows: 1-fimbria; 2-cross sections of fallopian tube. C. Received in formalin labeled "portion of right fallopian tube," is a 2.3 cm in length fimbriated portion of fallopian tube. The outer surface is nicole-ques[place] and smooth. Sectioning reveals an unremarkable lumen. Shoe Coverer sections are submitted in 2 cassettes as follows: 1-fimbria; 2-cross sections of fallopian tube. 11/17/2017 [facility]11/17/2017
== END 2017-11-13 12:40 | disposition home or self-care (01) | DRG 540 ==
LOC: JLDR 06:25 → J3W 11:13
PROVIDERS: ADMIT Obstetrics & Gynecology; ATTEND Obstetrics & Gynecology
PROC: 10D00Z1 Extraction of Products of Conception, Low, Open Approach (ICD-10-PCS; principal; 2017-11-10)
PROC: 0UB70ZZ Excision of Bilateral Fallopian Tubes, Open Approach (ICD-10-PCS; 2017-11-10)
DX: O14.94 Unspecified pre-eclampsia, complicating childbirth (principal); Z3A.39 39 weeks gestation of pregnancy; Z37.0 Single live birth; Z30.2 Encounter for sterilization
CPT/HCPCS: 36415; 85025; 88302-TC; 88307-TC

== ENCOUNTER 2019-04-23 05:11 | Day surgery (SDC) | payer OTHER ==
[2019-04-22 08:56] VITALS: BMI 24.3
[2019-04-23] MEDS ORDERED: MIDAZOLAM HCL 2 MG/2 ML SINGLE DOSE VIAL ONE (07:20)
[2019-04-23] MEDS ORDERED: PROPOFOL 20 ML ONE ×4 (07:20)
[2019-04-23] MEDS ORDERED: IBUPROFEN 800 MG/8 ML IJ IVPB PRN (07:48)
[2019-04-23] MEDS ORDERED: ONDANSETRON 4 MG/2 ML VIAL IVPUSH PRN (07:48)
[2019-04-23] MEDS ORDERED: IBUPROFEN 600 MG TABLET (FP) PO PRN (07:48)
[2019-04-23] MEDS ORDERED: oxyCODONE HCL 5 MG TABLET PO PRN (07:48)
--- NOTE | 2019-04-23 07:48 | OP ---
Operative Note - Note: Operative Date: 04/23/19 Pre-Operative Diagnosis: 33yo P2 with abnormal uterine bleeding, metrorrhagia Operation: D&C, Endometrial ablation Findings: Postmenstrual Endometrium Bleeding from [place] site requiring suturing Post-Operative Diagnosis: Same as Pre-op Surgeon: Laura Gomes Anesthesiologist/JOB COACH: Hayley Parra Anesthesia: MAC Specimens Removed: Endometrial curettings Estimated Blood Loss (mls): 100 Drains, Volume Out (mls): 100 Fluid Volume Replaced (mls): 500 Operative Report Dictated: Yes
--- NOTE | 2019-04-23 07:48 | HP ---
History & Physical Update - History History: No Change - Physical Physical: No Change - Assessment Assessment: No Change - Plan Plan: No Change (H&P unchanged Consent signed and witnessed All questions answered)
[2019-04-23] MEDS ORDERED: DEXAMETHASONE SOD PHOSPHATE 4 MG/1 ML VIAL ONE (07:54)
[2019-04-23] MEDS ORDERED: ELECTROLYTE-148 SOLN 1,000 ML IV SCH (08:00)
[2019-04-23] MEDS ORDERED: SILVER NITRATE 75% APPLIC STCK 1 PKT EACH TP ONE ×3 (08:45)
[2019-04-23] MEDS ORDERED: ACETAMINOPHEN 500 MG TABLET (FP) PO ONE (10:06)
[2019-04-23] MEDS ORDERED: ACETAMINOPHEN 325 MG TABLET (FP) ONE (10:13)
[2019-04-23] MEDS ORDERED: ACETAMINOPHEN 325 MG TABLET (FP) PO ONE (10:15)
[2019-04-23] MEDS ORDERED: LACTATED RINGERS SOLUTION 1,000 ML IV SCH (10:15)
[2019-04-23 10:58] VITALS: TEMP 98
[2019-04-23] MEDS ORDERED: oxyCODONE HCL 5 MG TABLET ONE (11:01)
[2019-04-23] MEDS ORDERED: oxyCODONE HCL 5 MG TABLET PO ONE (11:05)
--- NOTE | 2019-04-23 12:11 | OP ---
DATE OF OPERATION: 04/23/2019 PREOPERATIVE DIAGNOSIS: A 33-year-old para 2 with abnormal uterine bleeding metorrhagia. POSTOPERATIVE DIAGNOSIS: A 33-year-old para 2 with abnormal uterine bleeding metorrhagia. OPERATION: Dilation and curettage, endometrial ablation. FINDINGS: Postmenstrual endometrium and bleeding from the tenaculum requiring suturing. SURGEON: Laura Gomes MD ANESTHESIOLOGIST: CARMELINA Burgess ANESTHESIA: MAC. SPECIMEN REMOVED: Endometrial curetting. DESCRIPTION OF THE OPERATIVE PROCEDURE: After assuring informed consent, the patient was brought to the operating room where she was placed in dorsal lithotomy position. Perineum and vagina were prepped and draped in sterile fashion. King retractors were placed into the vagina and anterior cervical lip was visualized and articulated with the single-tooth tenaculum. The cervix was gradually dilated with increasing in size dilators to accommodate [employer] Hysteroscope, which was introduced and the endometrial cavity was inspected with the above findings. Subsequently, hysteroscope was removed. A gentle curettage was performed to collect endocervical curettings. Subsequently, the hysteroscope was introduced back. The cavity was intact. The pressure was stable. The completed 10 minute endometrial ablation cycle was performed. A 2 minute cooling cycle was performed. Subsequently, the diagnostic hysteroscopy was continued for a few more minutes and polyp forceps were used to remove some of the burned endometrial tissue from inside the uterus. Hysteroscopy was performed again. Endometrial cavity was found to be intact. The tenaculum at this point was removed and significant bleeding was encountered from the tenaculum site. The 0 Vicryl on a UR5 needle was used and hemostatic figure-of-8 suture was placed. Silver nitrate was used as well, as well as pressure. Excellent hemostasis was eventually established. Estimated blood loss was 100 mL. Urine output 100 mL and the patient received 500 mL of IV fluids. Patient tolerated the procedure well and was brought to the recovery room in stable condition. Sponge and instrument count was correct x2. Jc [id number]
[2019-04-23 12:58] VITALS: BP 98/48; PULSE 56
--- NOTE | 2019-04-24 15:51 | PATH ---
Surgical Pathology Report Patient Name: TAPAN SCHMIDT [facility]. Rec. #: [id number] /Age/Gender: 1985 (Age: 33) / F Account: [id number] Location: [facility] SURGICAL Taken: 04/23/2019 Received: 04/23/2019 Reported: 04/24/2019 Physicians: Laura Gomes M.D. Specimen(s) Received ENDOMETRIAL CURETTINGS Clinical History Abnormal uterine bleeding Final Diagnosis ENDOMETRIAL CURETTINGS: FRAGMENTS OF ENDOMETRIAL POLYP. SEPARATE SECRETORY TYPE ENDOMETRIUM WITH STROMAL BREAKDOWN. SEPARATE ENDOCERVICAL TISSUE WITH SQUAMOUS METAPLASIA. Electronically Signed Roberto Rivera M.D. Gross Description Received in formalin labeled "endometrial curettings," is a 2.0 x 1.6 x 0.3 cm aggregate of red-brown soft tissue fragments. The formalin is filtered and the specimen is entirely submitted in one cassette. /04/23/2019 saudi/04/23/2019
== END 2019-04-23 12:50 | disposition home or self-care (01) ==
LOC: JASU-SURG 05:11
PROVIDERS: ATTEND Obstetrics & Gynecology
PROC: 0U5B8ZZ Destruction of Endometrium, Via Natural or Artificial Opening Endoscopic (ICD-10-PCS; principal; 2019-04-23 07:30)
DX: N93.9 Abnormal uterine and vaginal bleeding, unspecified (principal)
CPT/HCPCS: 84703; 88305-TC; 94760

== ENCOUNTER 2019-04-25 13:08 | Inpatient (IN) | payer OTHER ==
[2019-04-25 13:17] VITALS: BMI 28.1
--- NOTE | 2019-04-25 13:19 | PDOC ---
Rapid Medical Evaluation Chief Complaint: Pain Time Seen by Provider: 04/25/19 13:14 Medical Evaluation: Allergies Allergy/AdvReac Type Severity Reaction Status Date / Time Penicillins Allergy "rash" Verified 04/23/19 06:37 04/25/19 13:15 I have performed a brief in-person evaluation of this patient. The patient presents with a chief complaint of: postop endometrial ablation Monday, sent from W[facility] ROOM SUPERVISOR here for admission for postop infection. Temps at home 101. Pertinent physical exam findings: Pain, + fevers/ ABD soft I have ordered the following: CBC, CMP, BCx2, UA/Cx The patient will proceed to the ED for further evaluation. 04/25/19 13:19 Discharge Disposition - Diagnosis Infection - Discharge Dispostion Condition at time of disposition: Stable - Referrals - Patient Instructions - Post Discharge Activity
[2019-04-25] MEDS ORDERED: CLINDAMYCIN 600MG PREMIX IVPB 600 MG/50 ML BAG IVPB ONE ×2 (13:52→14:16)
[2019-04-25] MEDS ORDERED: DOXYCYCLINE INJECTION 100 MG in DEXTROSE 5%-WATER - 100 ML IVPB ONE (13:52)
[2019-04-25] MEDS ORDERED: ACETAMINOPHEN 1000 MG/100 ML VIAL (NON FORMULARY) IVPB ONE (13:57)
[2019-04-25] MEDS ORDERED: SODIUM CHLORIDE 1,000 ML IV STA (13:58)
--- NOTE | 2019-04-25 14:11 | PDOC ---
History of Present Illness - General Chief Complaint: Pain Stated Complaint: SENT BY PCP Time Seen by Provider: 04/25/19 13:14 History Source: Patient, Primary Care Provider Exam Limitations: No Limitations - History of Present Illness Initial Comments: 04/25/19 13:58 Patient is 33F with history of x2 here today with lower abdominal pain for the past two days. She was sent in by her OBGYN for failed outpatient treatment of endometritis. Endorses associated fevers and chills. Denies chest pain, shortness of breath. Denies headache, neck pain. Patient states she had pelvic exam earlier today. Patient's OBGYN is Dr Gomes who called ED to make us aware of patient's arrival. Phone call received by myself. Dr Gomes state's patient's exam consistent with endometritis, failed outpatient metronidazole. Will treat with IV doxy and clinda due to penicillin allergy. Past History - Past Medical History Allergies/Adverse Reactions: Allergies Allergy/AdvReac Type Severity Reaction Status Date / Time Penicillins Allergy "rash" Verified 04/25/19 16:56 Home Medications: Ambulatory Orders Multivitamin [Children's Chewable Vitamin] 1 each PO DAILY 04/22/19 Ibuprofen [Motrin -] 600 mg PO QID #28 tablet 04/23/19 Oxycodone HCl 5 mg PO Q4HWA 2 Days #6 capsule MDD 8 04/23/19 Anemia: No Asthma: No Cancer: No Cardiac Disorders: No CVA: No COPD: No CHF: No Dementia: No Diabetes: No GI Disorders: No Disorders: No HTN: No Hypercholesterolemia: No Liver Disease: No Seizures: No Thyroid Disease: No - Immunization History Immunization Up to Date: No - Psycho Social/Smoking Cessation Hx Smoking History: Never smoked Have you smoked in the past 12 months: No Number of Cigarettes Smoked Daily: 5 Information on smoking cessation initiated: No 'Breaking Loose' booklet given: 04/23/19 Hx Alcohol Use: No Drug/Substance Use Hx: No Substance Use Type: Alcohol Hx Substance Use Treatment: No Review of Systems - Review of Systems Able to Perform ROS?: Yes Comments:: 04/25/19 14:13 GENERAL/CONSTITUTIONAL: +fever +chills. No weakness. HEAD, EYES, EARS, NOSE AND THROAT: No change in vision. No sore throat. CARDIOVASCULAR: No chest pain or shortness of breath RESPIRATORY: No cough, wheezing, or hemoptysis. GASTROINTESTINAL: No nausea, vomiting, diarrhea or constipation. GENITOURINARY: No dysuria, frequency, or change in urination. MUSCULOSKELETAL: No joint or muscle swelling or pain. No neck or back pain. SKIN: No rash NEUROLOGIC: No headache, vertigo, loss of consciousness, or change in strength/sensation. ENDOCRINE: No increased thirst. No abnormal weight change HEMATOLOGIC/LYMPHATIC: No anemia, easy bleeding, or history of blood clots. ALLERGIC/IMMUNOLOGIC: No hives or skin allergy. *Physical Exam - Vital Signs Last Vital Signs Temp Pulse Resp BP Pulse Ox 101.3 F H 124 H 18 118/78 100 04/25/19 13:14 04/25/19 13:14 04/25/19 13:14 04/25/19 13:14 04/25/19 13:14 - Physical Exam 04/25/19 14:14 GENERAL: Awake, alert, and fully oriented, in no acute distress HEAD: No signs of trauma, normocephalic, atraumatic EYES: PERRLA, EOMI, sclera anicteric, conjunctiva clear ENT: Auricles normal inspection, hearing grossly normal, nares patent, oropharynx clear without exudates. Moist mucosa NECK: Normal ROM, supple, no lymphadenopathy, JVD, or masses LUNGS: No distress, speaks full sentences, clear to auscultation bilaterally HEART: Regular rate and rhythm, normal S1 and S2, no murmurs, rubs or gallops, peripheral pulses normal and equal bilaterally. ABDOMEN: Soft, suprapubic tenderness. No guarding, no rebound. No masses EXTREMITIES: Normal inspection, Normal range of motion, no edema. No clubbing or cyanosis. NEUROLOGICAL: Cranial nerves II through XII grossly intact. Normal speech, normal gait, no focal sensorimotor deficits SKIN: Warm, Dry, normal turgor, no rashes or lesions noted. ED Treatment Course - LABORATORY CBC & Chemistry Diagram: 04/25/19 14:30 04/25/19 14:30 Medical Decision Making - Medical Decision Making 04/25/19 14:15 Patient is 33F here today with endometritis. Vitals notable for fever and tachycardia. Will evaluate with basic labs, cultures. Will treat with fluids, tylenol and abx recommended by OBGYN. Admitted to Dr Gomes. 04/25/19 15:54 CBC shows leukocytosis CMP stable. UA shows no infection. Patient already admitted. Discharge - Discharge Information Problems reviewed: Yes Clinical Impression/Diagnosis: Infection Condition: Stable - Follow up/Referral - Patient Discharge Instructions - Post Discharge Activity
[2019-04-25] MEDS ORDERED: DOXYCYCLINE HYCLATE 100 MG VIAL ONE (14:16)
[2019-04-25] MEDS ORDERED: ACETAMINOPHEN INJECTION 100 ML IVPB ONE (14:16)
--- NOTE | 2019-04-25 14:21 | PDOC ---
Attending Attestation - Resident Resident Name: Ganga Timmons - ED Attending Attestation I have performed the following: I have examined & evaluated the patient, The case was reviewed & discussed with the resident, I agree w/resident's findings & plan - HPI HPI: 04/25/19 14:19 Healthy 33-year-old female with history of x2 sent in by REMEDIAL PROJECT MANAGER with endometritis following hysteroscopy, fever/chills at home failing outpatient Flagyl. - Physicial Exam PE: 04/25/19 14:19 Fever, tachycardia, but well-appearing in no acute distress Heart is regular slight tachycardia, lungs are clear Abdomen with suprapubic discomfort - Medical Decision Making 04/25/19 14:20 33-year-old female with endometritis, sent by REMEDIAL PROJECT MANAGER for admission for IV antibiotics. labs, cultures iv clinda and doxy started per discussion with chairperson anesthesiology admitted to Dr. Gomes
[2019-04-25 14:54] LABS: BASO % 0.2 % (0-2.0); EOS % 0.3 % (0-4.5); HEMATOCRIT 35.7 % (32.4-45.2); HEMOGLOBIN 12.1 GM/dL (10.7-15.3); LYMPH % 6.8 % (8-40); MCH 30.4 pg (25.7-33.7); MCHC 33.9 g/dl (32.0-36.0); MEAN CELL VOLUME 89.6 fl (80-96); MEAN PLT VOLUME 7.8 fl (7.5-11.1); MONO % 6.3 % (3.8-10.2); NEUT % 86.4 % (42.8-82.8); PLATELET COUNT 180 K/MM3 (134-434); RBC 3.98 M/mm3 (3.60-5.2); RDW 12.8 % (11.6-15.6); WHITE BLOOD COUNT 15.9 K/mm3 (4.0-10.0)
[2019-04-25 15:13] LABS: EPI CELLS 6.5 /HPF (0-5/HPF); HYALINE CASTS 4 /lpf (0-8); PH,URINE 8.5 (5.0-8.0); URINE APPEARANCE CLEAR; URINE BACTERIA 5.7 /hpf (NEGATIVE); URINE BILIRUBIN NEGATIVE (NEGATIVE); URINE COLOR YELLOW; URINE GLUCOSE (UA) NEGATIVE (NEGATIVE); URINE KETONE NEGATIVE (NEGATIVE); URINE LEUK ESTERASE NEGATIVE (NEGATIVE); URINE NITRITE NEGATIVE (NEGATIVE); URINE PROTEIN 1+ (NEGATIVE); URINE RBC 51 /hpf (0-4); URINE UROBILINOGEN 0.2 mg/dL (0.2-1.0); URINE WBC 3 /hpf (0-5)
[2019-04-25 15:31] LABS: ALBUMIN 3.6 g/dl (3.4-5.0); BILIRUBIN,TOTAL 0.8 mg/dL (0.2-1); BLOOD UREA NITROGEN 6.3 mg/dL (7-18); CALCIUM 8.5 mg/dL (8.5-10.1); CREATININE 0.8 mg/dL (0.55-1.3); POTASSIUM 3.4 mmol/L (3.5-5.1); TOT PROT 7.3 g/dl (6.4-8.2)
[2019-04-25] MEDS: IBUPROFEN 800 MG/8 ML IJ IVPB PRN (18:33)
--- NOTE | 2019-04-25 19:22 | HP ---
Admitting History and Physical - Primary Care Physician PCP: Laura Gomes - Past Medical History ...LMP: 04/20/19 ...: No - Past Surgical History Past Surgical History: Yes: None, - Smoking History Smoking history: Never smoked Have you smoked in the past 12 months: No Aproximately how many cigarettes per day: 5 - Alcohol/Substance Use Hx Alcohol Use: No History of Substance Use: reports: None - Social History ADL: Independent Occupation: artist manager History of Recent Travel: No Home Medications - Allergies Allergies/Adverse Reactions: Allergies Allergy/AdvReac Type Severity Reaction Status Date / Time Penicillins Allergy "rash" Verified 04/25/19 16:56 - Home Medications Home Medications: Ambulatory Orders Multivitamin [Children's Chewable Vitamin] 1 each PO DAILY 04/22/19 Ibuprofen [Motrin -] 600 mg PO QID #28 tablet 04/23/19 Oxycodone HCl 5 mg PO Q4HWA 2 Days #6 capsule MDD 8 04/23/19 Physical Examination Vital Signs: Vital Signs Temperature 99.1 F 04/25/19 18:25 Pulse Rate 116 H 04/25/19 18:25 Respiratory Rate 20 04/25/19 18:25 Blood Pressure 100/54 L 04/25/19 18:25 O2 Sat by Pulse Oximetry (%) 99 04/25/19 18:28 Labs: CBC, BMP 04/25/19 14:30 04/25/19 14:30
[2019-04-25] MEDS ORDERED: IBUPROFEN 800 MG/8 ML IJ IVPB PRN (19:24)
[2019-04-25] MEDS ORDERED: ONDANSETRON 4 MG/2 ML VIAL IVPUSH PRN (19:24)
[2019-04-25] MEDS ORDERED: GENTAMICIN INJECTION 100 MG in SODIUM CHLORIDE 100 ML IVPB ONE (20:15)
[2019-04-25] MEDS: CLINDAMYCIN 600MG PREMIX IVPB 600 MG/50 ML BAG IVPB SCH (22:05)
[2019-04-25] MEDS: DOXYCYCLINE INJECTION 100 MG in DEXTROSE 5%-WATER - 100 ML IVPB SCH (22:50)
[2019-04-26] MEDS: IBUPROFEN 800 MG/8 ML IJ IVPB PRN (01:39)
[2019-04-26] MEDS: CLINDAMYCIN 600MG PREMIX IVPB 600 MG/50 ML BAG IVPB SCH ×4 (02:37→21:57)
[2019-04-26] MEDS: IBUPROFEN 600 MG TABLET (FP) PO PRN ×3 (08:33→22:36)
[2019-04-26] MEDS: DOXYCYCLINE INJECTION 100 MG in DEXTROSE 5%-WATER - 100 ML IVPB SCH (09:15)
[2019-04-26] MEDS: oxyCODONE HCL 5 MG TABLET PO PRN ×3 (09:40→22:36)
[2019-04-26 10:02] LABS: BASO % 0.1 % (0-2.0); EOS % 1.6 % (0-4.5); HEMATOCRIT 29.9 % (32.4-45.2); LYMPH % 7.2 % (8-40); MCH 30.9 pg (25.7-33.7); MCHC 33.6 g/dl (32.0-36.0); MEAN CELL VOLUME 91.9 fl (80-96); MEAN PLT VOLUME 7.8 fl (7.5-11.1); MONO % 5.5 % (3.8-10.2); NEUT % 85.6 % (42.8-82.8); PLATELET COUNT 145 K/MM3 (134-434); RBC 3.25 M/mm3 (3.60-5.2); RDW 13.1 % (11.6-15.6); WHITE BLOOD COUNT 13.8 K/mm3 (4.0-10.0)
[2019-04-26] MEDS: GENTAMICIN INJECTION 100 MG in SODIUM CHLORIDE 97.5 ML IVPB SCH (10:32)
[2019-04-26] MEDS: CEFUROXIME AXETIL 500 MG TABLET PO SCH (22:02)
[2019-04-26] MEDS: DOXYCYCLINE INJECTION 100 MG in DEXTROSE 5%-WATER 100 ML IVPB SCH (22:30)
--- NOTE | 2019-04-26 22:48 | PN ---
Progress Note, Physician - Current Medication List Current Medications: Active Medications Cefuroxime Axetil (Ceftin -) 500 mg PO BID [facility] Last Admin: 04/26/19 22:02 Dose: 500 mg Gentamicin Sulfate 100 mg/ (Sodium Chloride) 100 mls @ 100 mls/hr IVPB DAILY [facility]; Protocol Last Admin: 04/26/19 10:32 Dose: 100 mls/hr Clindamycin Phosphate (Cleocin 600 Mg Premix Ivpb -) 600 mg in 50 mls @ 100 mls /hr IVPB Q6H-IV MELODIE Last Admin: 04/26/19 21:57 Dose: 100 mls/hr Doxycycline Hyclate 100 mg/ (Dextrose) 100 mls @ 100 mls/hr IVPB BID [facility] Last Admin: 04/26/19 22:30 Dose: 100 mls/hr Ibuprofen (Motrin -) 600 mg PO Q6H PRN PRN Reason: FEVER Last Admin: 04/26/19 22:36 Dose: 600 mg Ibuprofen (Caldolor Injection -) 800 mg IVPB Q6H PRN PRN Reason: Fever - If PO not effective. Ondansetron HCl (Zofran Injection) 4 mg IVPUSH Q6H PRN PRN Reason: NAUSEA Oxycodone HCl (Roxicodone -) 5 mg PO Q4H PRN PRN Reason: PAIN LEVEL 1-5 Last Admin: 04/26/19 22:36 Dose: 5 mg - Objective Vital Signs: Vital Signs Temperature 98.5 F 04/26/19 18:00 Pulse Rate 90 04/26/19 18:00 Respiratory Rate 18 04/26/19 18:00 Blood Pressure 102/59 L 04/26/19 18:00 O2 Sat by Pulse Oximetry (%) 99 04/25/19 18:28 Labs: CBC, BMP 04/26/19 09:50 04/25/19 14:30
[2019-04-27] MEDS: CLINDAMYCIN 600MG PREMIX IVPB 600 MG/50 ML BAG IVPB SCH ×2 (02:34→08:48)
[2019-04-27] MEDS: DOXYCYCLINE INJECTION 100 MG in DEXTROSE 5%-WATER 100 ML IVPB SCH (09:40)
[2019-04-27] MEDS: CEFUROXIME AXETIL 500 MG TABLET PO SCH (09:40)
[2019-04-27] MEDS: GENTAMICIN INJECTION 100 MG in SODIUM CHLORIDE 97.5 ML IVPB SCH (11:15)
[2019-04-27] MEDS: IBUPROFEN 600 MG TABLET (FP) PO PRN (11:17)
--- NOTE | 2019-04-27 11:32 | DS ---
Physical Exam-[facility] [employer] Vital Signs: Vital Signs Temperature 97.4 F L 04/27/19 06:00 Pulse Rate 83 04/27/19 06:00 Respiratory Rate 20 04/27/19 06:00 Blood Pressure 117/62 04/27/19 06:00 O2 Sat by Pulse Oximetry (%) 99 04/25/19 18:28 Constitutional: Yes: Well Nourished, No Distress, Calm Eyes: Yes: WNL HENT: Yes: WNL Neck: Yes: WNL Cardiovascular: Yes: WNL, Regular Rate and Rhythm Respiratory: Yes: WNL, Regular, CTA Bilaterally Gastrointestinal: Yes: WNL, Normal Bowel Sounds, Soft Renal/: Yes: WNL Pelvis: Yes: WNL Musculoskeletal: Yes: WNL Extremities: Yes: WNL Integumentary: Yes: WNL Wound/Incision: Yes: Clean/Dry, Well Approximated Neurological: Yes: WNL, Alert, Oriented ...Motor Strength: WNL Psychiatric: Yes: WNL, Alert, Oriented Labs: CBC, BMP 04/26/19 09:50 04/25/19 14:30 Discharge Summary Problems reviewed: Yes Reason For Visit: ENDOMETRITIS Current Active Problems Infection (Acute) Condition: Stable - Instructions Diet, Activity, Other Instructions: Physical activity Resume your normal everyday activity as tolerated no heavy lifting or exercise until seen by your surgeon. You may walk unlimited bhavna of and climb stairs. You may resume driving the car when you feel safe and comfortable behind the wheel. No sexual activity as instructed. Diet There are no dietary restrictions. Eat healthy, high-fiber foods. Drink 6 to 8 glasses of liquid each day. This will assist in keeping your bowels are regular. Pain management You may take Tylenol or acetaminophen or Ibuprofen (for example, Motrin, Advil etc.) from my pain prescription medication is ordered should be taken as prescribed for moderate to severe pain. Call MD for any of the following: Severe pain not relieved by medication Fever of 101 or higher Excessive bleeding or drainage on dressing Inability to urinate Referrals: Izabel Anand [Primary Care Provider] - Disposition: HOME - Home Medications Comprehensive Discharge Medication List: Ambulatory Orders Multivitamin [Children's Chewable Vitamin] 1 each PO DAILY 04/22/19 Ibuprofen [Motrin -] 600 mg PO QID #28 tablet 04/23/19 Oxycodone HCl 5 mg PO Q4HWA 2 Days #6 capsule MDD 8 04/23/19
[2019-04-27 15:29] VITALS: BP 108/61; PULSE 96; TEMP 98.5
== END 2019-04-27 12:43 | disposition home or self-care (01) | DRG 531 ==
LOC: JER 13:08 → JERBED 13:53 → J3W 18:18
PROVIDERS: ADMIT Obstetrics & Gynecology; ATTEND Obstetrics & Gynecology
DX: N71.9 Inflammatory disease of uterus, unspecified (principal); R00.0 Tachycardia, unspecified; D72.829 Elevated white blood cell count, unspecified; R50.9 Fever, unspecified
CPT/HCPCS: 36415; 80053; 81003; 85025; 87040; 87086; 99284-25; J0131; J7030